=== PATIENT | female | born 1940 | race Caucasian/White ===

== ENCOUNTER → 2017-01-11 | Outpatient (CLI) | payer MEDICARE, BC ==
[~2017-01-11] MED LIST: ACET-2161 PO; ASPI-558 PO; ATEN1TAB3 PO; CALC-191 PO; CYCL32DR2 BOTH EYES; ESTRPATC4 TOP; FERR240T2 PO; FESO4TAB PO; FOLI0.8T23 PO; LEVO25TA7 PO; LORA0.5T2 PO; NITR0.4T SL; ONDA4TAB4 PO; PANT40TA25 PO; POTA10TA14 PO; SUCR1TAB20 PO; VITA-282 PO; ZOLE5INF7
--- NOTE | 2017-01-11 14:31 | DI ---
INDICATION: ITS.REASON: Z01.89 PRE-OP EXAM PROCEDURE: CHEST 2-VIEWS UPRIGHT (PA \T\ LAT) Encounter: Initial COMPARISON: May 27, 2015 FINDINGS: The lungs are clear without evidence of focal abnormal airspace opacity. There is no pleural effusion or pneumothorax. The heart size, mediastinal contours and pulmonary vascularity are stable. Moderate to large hiatal hernia. Exaggerated thoracic kyphosis. IMPRESSION: Stable chest without acute cardiopulmonary disease. .
== END ==
LOC: IMA 12:59
PROVIDERS: ATTEND Internal Medicine
DX: Z01.818 Encounter for other preprocedural examination (principal)